=== PATIENT | female | born 1965 | race Caucasian/White ===

== ENCOUNTER 2016-12-09 09:51 | Emergency (ER) | payer MEDICARE, MEDICAID ==
[~2016-12-09] VITALS: Ht 147.3 cm; Wt 66.8 kg
[2016-12-09 09:57] VITALS: BP 90/64
[2016-12-09] MEDS ORDERED: METF500T4 PO (10:23)
[2016-12-09] MEDS ORDERED: LISI5TAB7 PO (10:23)
[2016-12-09] MEDS ORDERED: ATOR40TA78 PO (10:23)
[2016-12-09] MEDS ORDERED: CITA40TA5 PO (10:23)
[2016-12-09] MEDS ORDERED: FENO160T PO (10:23)
[2016-12-09] MEDS ORDERED: KETOROLAC 30 MG/1 ML IM ONE (10:30)
[2016-12-09] MEDS ORDERED: KETOROLAC 30 MG/1 ML ONE (10:41)
== END 2016-12-09 11:17 | disposition home or self-care (01) ==
LOC: ED 10:50
DX: K04.7 Periapical abscess without sinus (principal)
CPT/HCPCS: 96372; 99283; J1885

== ENCOUNTER 2019-01-17 19:17 | Inpatient (IN) | payer MEDICARE, MEDICAID ==
[~2019-01-17] VITALS: Ht 162.6 cm; Wt 71.5 kg
[~2019-01-17 19:17] MED LIST: ATOR40TA78 PO; CITA40TA5 PO; FENO160T PO; LISI5TAB7 PO; METF500T17 PO
--- NOTE | 2019-01-17 19:33 | NUR ---
BIB [facility]. C/O NUMBNESS/TINGLING IN BILAT HANDS, AND SLURRED WORDS. BS AT SCENE 308. HX TIA, DM2. MEDS CHANGED FROM METFORMIN TO ACTOS RECENTLY. CONNECTED TO ALL MONITORING. FALL PRECAUTIONS IN PLACE. CALL LIGHT IN REACH. FAMILY AT BEDSIDE.
--- NOTE | 2019-01-17 20:30 | NUR ---
PT AMBULATED TO BEDSIDE COMODE. PT BECAME VERY SOB. PT PLACED IN YELLOW GOWN.
[2019-01-17 20:35] LABS: BASOPHILS # (AUTO) 0.02 x10^3/uL (0-0.1); BASOPHILS % (AUTO) 0 % (0-1); EOSINOPHILS # (AUTO) 0.05 x10^3/uL (0-0.4); EOSINOPHILS % (AUTO) 1 % (1-7); LYMPHOCYTES # (AUTO) 1.08 x10^3/uL (1-3.4); LYMPHOCYTES % (AUTO) 15 % (22-44); MD NO; MEAN CORPUSCULAR HEMOGLOBIN 31.7 pg (27.0-34.8); MEAN CORPUSCULAR HGB CONC 33.5 g/dL (32.4-35.8); MEAN CORPUSCULAR VOLUME 94.8 fL (80-100); MEAN PLATELET VOLUME 9.4 fL (7.4-10.4); MONOCYTES # (AUTO) 0.41 x10^3/uL (0.2-0.8); MONOCYTES % (AUTO) 6 % (2-9); NEUTROPHILS # (AUTO) 5.65 x10^3/uL (1.8-6.8); NEUTROPHILS % (AUTO) 78 % (42-75); PLATELET COUNT 246 x10^3/uL (130-400); RED BLOOD COUNT 4.29 x10^6/uL (3.82-5.3); RED CELL DISTRIBUTION WIDTH 14.1 % (9.6-15.2)
[2019-01-17 20:46] LABS: ALANINE AMINOTRANSFERASE 31 U/L (12-78); ALBUMIN 3.3 g/dL (3.4-5.0); ANION GAP 9 mmol/L (5-15); CALCIUM 8.2 mg/dL (8.5-10.1); CHLORIDE 103 mmol/L (98-107); CREATININE 1.88 mg/dL (0.55-1.02); SALICYLATE LEVEL 4.3 mg/dL (2.8-20.0)
[2019-01-17 20:50] LABS: ALKALINE PHOSPHATASE 82 U/L (45-117); BILIRUBIN,TOTAL 0.2 mg/dL (0.2-1.0); TROPONIN I < 0.015 ng/mL (0.000-0.045)
--- NOTE | 2019-01-17 20:53 | NUR ---
UA COLLECTED VIA STRAIGHT CATH AND TAKEN TO LAB.
[2019-01-17] MEDS ORDERED: SODIUM CHLORIDE 0.9% 1,000ML IVBOLUS ONE (21:00)
[2019-01-17 21:10] LABS: MICROSCOPIC NOT IND
--- NOTE | 2019-01-17 21:10 | NUR ---
NEW IV PLACED AFTER FIRST INFILTRATED. IVF RUNNING PER MAY. PT RESTING COMFORTABLY ON GURNEY. FAMILY AT BEDSIDE.
[2019-01-17 21:12] LABS: CULTURE INDICATED? NO
[2019-01-17 21:22] LABS: AMPHETAMINE SCREEN, URINE Negative (Negative); BARBITURATE SCREEN, URINE Negative (Negative); BENZODIAZEPINE SCREEN, URINE Negative (Negative); CANNABINOID SCREEN, URINE Negative (Negative); COCAINE SCREEN, URINE Negative (Negative); METHADONE SCREEN, URINE Negative (Negative); OPIATE SCREEN, URINE Negative (Negative)
[2019-01-17] MEDS ORDERED: CEFTRIAXONE PMX 2GM/50ML 50 ML ONE (22:20)
[2019-01-17] MEDS ORDERED: MIDAZOLAM 1 MG/ML, 2ML ONE (22:21)
[2019-01-17] MEDS ORDERED: VANCOMYCIN PER PHARMACY MC PRN (22:30)
[2019-01-17] MEDS ORDERED: CEFTRIAXONE PMX 2GM/50ML 50 ML IV SCH (22:30)
[2019-01-17] MEDS ORDERED: MIDAZOLAM 1 MG/ML, 2ML IVPush ONE (22:30)
[2019-01-17] MEDS ORDERED: VANCOMYCIN 1,200 MG in SODIUM CHLORIDE 0.9% 250 ML IV ONE (22:30)
--- NOTE | 2019-01-17 23:00 | NUR ---
LP SET UP. CONSENT SIGNED.
--- NOTE | 2019-01-17 23:17 | NUR ---
LP ATTEMPTED, BUT PT WOULD NOT HOLD STILL TO OBTAIN SAMPLE.
--- NOTE | 2019-01-17 23:19 | NUR ---
PT UNABLE TO MAINTAIN POSITION DURING LP PROCEDURE. PT UNABLE TO FOLLOW INSTRUCTIONS STATING I GOT TO PEE NON STOP. PT GIVEN A CHANCE TO USE RESTROOM AND RESTERALIZED THE FIELD BUT PT STILL DID NOT HOLD STILL. SPOKE WITH PT WITH RESULTS. PT AT THIS TIME NOT WANTING TO PROCEEDE. STOPED AT PTS REQUEST AND INABILITY TO HOLD STILL DURING PROCEDURE DESPITE PHARMACOLOGICAL INTERVENTION. VSS
[2019-01-17] MEDS ORDERED: GANCICLOVIR IVPB ONE (23:45)
[2019-01-17] MEDS ORDERED: SODIUM CHLORIDE 0.9% IVPB ONE (23:45)
--- NOTE | 2019-01-17 23:46 | NUR ---
PT RESTING ON GURNEY, RESTLESS AT TIMES. FAMILY AT BEDSIDE. FALL PRECAUTIONS IN PLACE. CALL LIGHT IN REACH.
[2019-01-18] MEDS ORDERED: MIDAZOLAM 1 MG/ML, 2ML IVPush ONE
--- NOTE | 2019-01-18 00:08 | NUR ---
PER MD, ADMINISTER GANCICLOVIR PRIOR TO THE OTHER ABX. JESSICA AND MEGAN SENT UP TO FLOOR WITH PT. REPORT GIVEN TO GINA AMIN.
--- NOTE | 2019-01-18 00:09 | NUR ---
REPORT TO NAIF DUGGAN IN NAD
--- NOTE | 2019-01-18 00:20 | NUR ---
PT TO FLOOR WITH TECH AT THIS TIME
[2019-01-18 00:42] VITALS: BP 146/85
[2019-01-18] MEDS ORDERED: PIOG15TA22 PO (00:47)
[2019-01-18] MEDS ORDERED: SODIUM CHLORIDE 0.9% 1,000 ML IV SCH (01:22)
[2019-01-18] MEDS ORDERED: BISACODYL 10 MG SUPP PR PRN ×2 (01:30→02:30)
[2019-01-18] MEDS ORDERED: LIDODERM 5% PATCH TD PRN (01:30)
[2019-01-18] MEDS ORDERED: ONDANSETRON 2MG/ML, 2ML IVPush PRN (01:30)
[2019-01-18] MEDS ORDERED: VANCOMYCIN PER PHARMACY MC PRN (01:30)
[2019-01-18] MEDS ORDERED: TEMAZEPAM 15 MG CAPSULE PO PRN (01:30)
[2019-01-18] MEDS ORDERED: ACETAMINOPHEN 325 MG TABLET PO PRN ×2 (01:30→07:30)
[2019-01-18] MEDS ORDERED: hydrALAzine 20 MG/ML, 1ML IVPush PRN (01:30)
[2019-01-18] MEDS ORDERED: PHARMACOKINETIC MONITORING MC PRN (02:00)
[2019-01-18 02:11] LABS: HEMOGLOBIN A1C 10.1 % (4.2-6.3)
[2019-01-18] MEDS: HEPARIN 5,000 UNITS/ML, 1ML SQ SCH ×3 (02:25→20:19)
[2019-01-18] MEDS: INSULIN LISPRO 100 UNITS/ML, PEN SQ-INSULIN SCH ×5 (02:25→20:23)
[2019-01-18] MEDS ORDERED: VANCOMYCIN 1,200 MG in SODIUM CHLORIDE 0.9% 250 ML IV ONE (02:30)
[2019-01-18] MEDS ORDERED: ONDANSETRON 4 MG TABLET PO PRN (02:30)
[2019-01-18] MEDS ORDERED: NICOTINE 21 MG/24 HR PATCH.TD24 TD ONE (02:30)
[2019-01-18] MEDS ORDERED: HEPARIN 5,000 UNITS/ML, 1ML SQ SCH (02:30)
[2019-01-18] MEDS ORDERED: ASPIRIN 81 MG TABLET CHEW PO/NG SCH (09:00)
[2019-01-18 09:28] LABS: CLOSTRIDIUM DIFFICILE ANTIGEN NEGATIVE; CLOSTRIDIUM DIFFICILE TOXIN NEGATIVE (Negative)
[2019-01-18] MEDS ORDERED: LORazepam 2 MG/ML, 1ML IVPush ONE (10:00)
[2019-01-18] MEDS ORDERED: PIOG30TA67 PO (11:28)
[2019-01-18] MEDS ORDERED: FENO54TA17 PO (11:28)
[2019-01-18 13:37] VITALS: BP 141/80
[2019-01-18] MEDS: ASPIRIN 300 MG SUPP PR SCH (16:18)
[2019-01-18] MEDS ORDERED: GLUCAGON 1 MG IM PRN (17:00)
[2019-01-18] MEDS ORDERED: DEXTROSE 4 GM TAB.CHEW PO PRN (17:00)
[2019-01-18] MEDS ORDERED: DEXTROSE 50%, 50ML SYRINGE IVPush PRN (17:00)
[2019-01-18 18:55] VITALS: BP 110/66
[2019-01-18] MEDS: ATORVASTATIN 80 MG TABLET PO SCH (20:22)
[2019-01-18] MEDS: SODIUM CHLORIDE FLUSH 10ML SYR IVF SCH (20:22)
[2019-01-18] MEDS ORDERED: CEFTRIAXONE PMX 2GM/50ML 50 ML IV SCH (23:00)
[2019-01-19] MEDS ORDERED: GANCICLOVIR IVPB SCH
[2019-01-19] MEDS ORDERED: SODIUM CHLORIDE 0.9% IVPB SCH
[2019-01-19] MEDS ORDERED: VANCOMYCIN 1,200 MG in SODIUM CHLORIDE 0.9% 250 ML IV SCH (02:30)
[2019-01-19 03:28] VITALS: BP 121/67
[2019-01-19] MEDS: HEPARIN 5,000 UNITS/ML, 1ML SQ SCH ×3 (03:35→21:20)
[2019-01-19] MEDS: SODIUM CHLORIDE 0.9% 1,000 ML IV SCH ×2 (05:08→21:20)
[2019-01-19 06:41] LABS: BASOPHILS # (AUTO) 0.02 x10^3/uL (0-0.1); BASOPHILS % (AUTO) 0 % (0-1); EOSINOPHILS # (AUTO) 0.07 x10^3/uL (0-0.4); EOSINOPHILS % (AUTO) 1 % (1-7); LYMPHOCYTES # (AUTO) 1.55 x10^3/uL (1-3.4); LYMPHOCYTES % (AUTO) 22 % (22-44); MD NO; MEAN CORPUSCULAR HEMOGLOBIN 30.8 pg (27.0-34.8); MEAN CORPUSCULAR VOLUME 93.3 fL (80-100); MONOCYTES # (AUTO) 0.42 x10^3/uL (0.2-0.8); MONOCYTES % (AUTO) 6 % (2-9); NEUTROPHILS # (AUTO) 4.96 x10^3/uL (1.8-6.8); NEUTROPHILS % (AUTO) 71 % (42-75); PLATELET COUNT 227 x10^3/uL (130-400); RED BLOOD COUNT 4.13 x10^6/uL (3.82-5.3); RED CELL DISTRIBUTION WIDTH 14.2 % (9.6-15.2)
[2019-01-19 06:53] LABS: ANION GAP 9 mmol/L (5-15); CALCIUM 8.9 mg/dL (8.5-10.1); CHLORIDE 111 mmol/L (98-107); CREATININE 1.28 mg/dL (0.55-1.02)
[2019-01-19 07:26] VITALS: BP 153/87
[2019-01-19] MEDS: SODIUM CHLORIDE FLUSH 10ML SYR IVF SCH ×2 (09:00→21:20)
[2019-01-19] MEDS: ASPIRIN 300 MG SUPP PR SCH (09:00)
[2019-01-19] MEDS ORDERED: ASPIRIN 300 MG SUPP PR SCH (09:00)
[2019-01-19] MEDS: CLOPIDOGREL 75 MG TABLET PO SCH (09:53)
[2019-01-19] MEDS: INSULIN LISPRO 100 UNITS/ML, PEN SQ-INSULIN SCH ×4 (10:56→21:00)
[2019-01-19] MEDS ORDERED: PROPOFOL 10 MG/ML, 50ML ONE (12:38)
[2019-01-19 14:05] VITALS: BP 121/74
[2019-01-19 20:31] VITALS: BP 115/69
[2019-01-19] MEDS: ATORVASTATIN 80 MG TABLET PO SCH (21:19)
[2019-01-20 01:12] VITALS: BP 123/78
[2019-01-20] MEDS: HEPARIN 5,000 UNITS/ML, 1ML SQ SCH ×2 (05:58→14:25)
[2019-01-20 06:57] LABS: ANION GAP 7 mmol/L (5-15); CALCIUM 8.7 mg/dL (8.5-10.1); CHLORIDE 108 mmol/L (98-107); CREATININE 1.25 mg/dL (0.55-1.02)
[2019-01-20 08:11] VITALS: BP 114/73
[2019-01-20] MEDS ORDERED: ASPIRIN 81 MG TABLET EC ONE (08:17)
[2019-01-20] MEDS: CLOPIDOGREL 75 MG TABLET PO SCH (08:25)
[2019-01-20] MEDS: LACTOBACILLUS CHEW TABLET PO SCH ×2 (08:28→12:00)
[2019-01-20] MEDS: INSULIN LISPRO 100 UNITS/ML, PEN SQ-INSULIN SCH ×3 (08:30→15:53)
[2019-01-20] MEDS: SODIUM CHLORIDE FLUSH 10ML SYR IVF SCH (08:31)
[2019-01-20] MEDS ORDERED: ASPIRIN 81 MG TABLET CHEW PO SCH (09:00)
[2019-01-20] MEDS ORDERED: CLOP75TA PO (09:35)
[2019-01-20] MEDS ORDERED: INSU100I11 SQ-INSULIN (09:35)
[2019-01-20] MEDS ORDERED: GLIP5TAB10 PO (09:35)
[2019-01-20] MEDS ORDERED: ACID1TAB7 PO (09:35)
[2019-01-20] MEDS ORDERED: ASPI-515 PO (09:35)
[2019-01-20 14:51] VITALS: BP 109/62
== END 2019-01-20 16:56 | DRG 64 ==
LOC: ED 23:32 → EDIP 23:59 → 4WST 01-18 00:27
PROVIDERS: ADMIT Internal Medicine; ATTEND Internal Medicine
PROC: B24BZZ4 Ultrasonography of Heart with Aorta, Transesophageal (ICD-10-PCS; principal; 2019-01-19 13:45)
DX: I63.89 Other cerebral infarction (principal); G93.41 Metabolic encephalopathy; E87.2 Acidosis; N17.9 Acute kidney failure, unspecified; E78.00 Pure hypercholesterolemia, unspecified; E78.5 Hyperlipidemia, unspecified; F17.210 Nicotine dependence, cigarettes, uncomplicated; F32.9 Major depressive disorder, single episode, unspecified; F41.9 Anxiety disorder, unspecified; I10 Essential (primary) hypertension; I35.1 Nonrheumatic aortic (valve) insufficiency; E11.65 Type 2 diabetes mellitus with hyperglycemia; I65.22 Occlusion and stenosis of left carotid artery; J44.9 Chronic obstructive pulmonary disease, unspecified; Z79.02 Long term (current) use of antithrombotics/antiplatelets; Z79.4 Long term (current) use of insulin; Z79.82 Long term (current) use of aspirin; Z86.73 Personal history of transient ischemic attack (TIA), and cerebral infarction without residual deficits
CPT/HCPCS: 36415; 62270; 70450; 70551; 80048; 80053; 80178; 80307; 81003; 82947; 82962; 83036; 83605; 83690; 84484; 85025; 87324; 93005; 93306; 93312; 93325; 93880; 96360; 96361; G0378; J0696; J1644; J2250; J2405; J2704; J3370; Q0162; 92523-GN; J1570; J1815; J2060; J7030; J7050

== ENCOUNTER → 2019-11-18 | Outpatient (CLI) | payer MEDICARE, MEDICAID ==
[~2019-11-18] MED LIST changes: +ACID1TAB7 PO; +ASPI-515 PO; +CLOP75TA PO; +FENO54TA17 PO; +GLIP5TAB10 PO; +INSU100I11 SQ-INSULIN; +OMNIPAQUE 350 MG/ML, 100ML BOTTLE ONE; +PIOG15TA22 PO; +PIOG30TA67 PO
== END | disposition home or self-care (01) ==
LOC: CFH 11:56
PROVIDERS: ATTEND Psychiatry & Neurology Neurology
DX: I63.89 Other cerebral infarction (principal)
CPT/HCPCS: 70496; Q9967